=== PATIENT | male | born 1975 | race Caucasian/White ===

== ENCOUNTER 2018-07-28 12:43 | Emergency (ER) | payer BC ==
[~2018-07-28] VITALS: Ht 170.2 cm; Wt 72.6 kg
[2018-07-28] MEDS ORDERED: HYSINGLA ER20 MG (13:23)
[2018-07-28] MEDS ORDERED: GABAPENTIN600 MG (13:25)
[2018-07-28] MEDS ORDERED: TERAZOSIN HCL5 MG (13:27)
== END 2018-07-28 17:14 | disposition home or self-care (01) ==
LOC: ER 12:43 → EDBD 13:02 → ER 17:14
DX: L03.113 Cellulitis of right upper limb (principal); S60.561A Insect bite (nonvenomous) of right hand, initial encounter; W57.XXXA Bitten or stung by nonvenomous insect and other nonvenomous arthropods, initial encounter; Y93.89 Activity, other specified; Y92.89 Other specified places as the place of occurrence of the external cause; Y99.8 Other external cause status